=== PATIENT | female | born 1960 | race Caucasian/White ===

== ENCOUNTER 2019-01-16 06:50 | Emergency (ER) | payer MEDICAID ==
[~2019-01-16] VITALS: Ht 157.5 cm; Wt 63.6 kg
[~2019-01-16 06:50] MED LIST: IBUP-1984 PO; INHALERS; LORA1TAB PO
[2019-01-16 06:54] VITALS: BP 133/73
[2019-01-16] MEDS ORDERED: SULF5DRO LEFTEYE (07:31)
== END 2019-01-16 08:21 | disposition home or self-care (01) ==
LOC: ER 06:50
DX: H10.9 Unspecified conjunctivitis (principal); J45.909 Unspecified asthma, uncomplicated; Z79.899 Other long term (current) drug therapy
CPT/HCPCS: 99283

== ENCOUNTER 2019-03-18 22:38 | Emergency (ER) | payer MEDICAID ==
[~2019-03-18] VITALS: Ht 157.5 cm; Wt 65.0 kg
[~2019-03-18 22:38] MED LIST changes: +SULF5DRO LEFTEYE
[2019-03-18 22:40] VITALS: BP 172/78
[2019-03-19] MEDS ORDERED: CEPH250T PO (01:23)
== END 2019-03-19 02:33 | disposition home or self-care (01) ==
LOC: ER 22:39
DX: L53.9 Erythematous condition, unspecified (principal); J45.909 Unspecified asthma, uncomplicated; Z79.899 Other long term (current) drug therapy
CPT/HCPCS: 99283